=== PATIENT | female | born 2000 | race African-American/Black ===

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

== ENCOUNTER 2018-12-11 17:28 | Emergency (ER) | payer BC, SELFPAY | END 2018-12-11 18:07 | disposition home or self-care (01) | LOC: SCSER 17:28 | DX: S01.512A Laceration without foreign body of oral cavity, initial encounter (principal); W10.9XXA Fall (on) (from) unspecified stairs and steps, initial encounter | CPT/HCPCS: 99282 ==